=== PATIENT | male | born 1990 | race Caucasian/White ===

== ENCOUNTER 2025-08-23 23:43 | Emergency (ER) | payer MEDICAID ==
[~2025-08-23] VITALS: Ht 182.9 cm; Wt 100.0 kg
[2025-08-23 23:46] VITALS: BP 148/107; PULSE 93; O2SAT 97
[2025-08-24] MEDS: HYDROcodone/acetaminophen 5mg/325mg tablet PO ONE (01:00)
[2025-08-24] MEDS: ondansetron 4mg rapidly disintigrating tab PO ONE (01:00)
[2025-08-24 01:01] VITALS: RESP 18
[2025-08-24] MEDS: ketorolac trometh 15mg/ml vial 15 MG/ML ML IM ONE (01:01)
[2025-08-24] MEDS ORDERED: HYDR-3965 PO ×2 (01:14→15:42)
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
[2025-08-24] MEDS: silver sulfadiazine cream 50gm TP ONE (01:24)
[2025-08-24] MEDS: TETanus/Pertussis (Acell)/Diphther VAC/PF (Tdap-Adult) 0.5ml syringe IMVAC ONE (01:25)
[2025-08-24 01:39] VITALS: TEMP 98.2
== END 2025-08-24 01:39 | disposition home or self-care (01) ==
LOC: ER 23:45
DX: T23.251A Burn of second degree of right palm, initial encounter (principal); X08.8XXA Exposure to other specified smoke, fire and flames, initial encounter; Y93.89 Activity, other specified; Y92.89 Other specified places as the place of occurrence of the external cause; Y99.8 Other external cause status
CPT/HCPCS: 90471; 90715; 96372; 99284; J1885; A6258